=== PATIENT | female | born 1980 | race Caucasian/White ===

== ENCOUNTER 2024-03-08 13:19 | Emergency (ER) | payer MEDICAID ==
[~2024-03-08] VITALS: Ht 165.1 cm; Wt 59.0 kg
[~2024-03-08 13:19] MED LIST: BUTA50TA6; BUTACAP OR; CLOZ100T; DIPH50TA15 OR; DOCU60SY2; FLUO20CA19; FLUO20CA19 OR; HYDR-2601; HYDR500T13 OR; IBU600T; IPRA0.035; IPRIH; LITH300C3 OR; METF-370; METF-370 OR; NITR-39 OR; NITR-52; OLAN10TA; OLAN10TA OR; TOPI100T29 OR; TOPI100T29 PO; TRAZ-227; TRAZ-227 OR; [UNRECOGNIZED DRUG - CODE] XX; abilify; benadryl; doc-q-lace PO; hydrocodone
[2024-03-08 13:36] VITALS: BP 119/63; PULSE 72; RESP 18; O2SAT 97
[2024-03-08 14:08] LABS: Basophils # (auto) 0 10 ^3/uL (0-0.2); Basophils % (auto) 0.1 % (0.0-2.0); Eosinophils # (auto) 0 10 ^3/uL (0-0.8); Hematocrit 46.6 % (36.0-46.0); Hemoglobin 15.8 g/dL (12.2-16.2); Lymphocytes # (auto) 2.9 10 ^3/uL (0.4-5.4); Mean Corpuscular Hemoglobin 29.5 pg (28.0-32.0); Mean Corpuscular Volume 86.7 fL (80.0-100.0); Monocytes # (auto) 0.6 10 ^3/uL (0-1.3); Monocytes % (auto) 6.9 % (0.0-12.0); Neutrophils # (auto) 5.8 10 ^3/uL (1.6-8.6); Nucleated Red Blood Cells % 0.2 %; Red Blood Cells 5.38 10^6/uL (4.0-5.20); Red Cell Distribution Width 13.4 % (11.8-14.3); White Blood Cell 9.4 10^3/uL (4.4-10.8)
[2024-03-08 14:25] LABS: Alanine Aminotransferase 13 U/L (7-40); Albumin 4.5 g/dL (3.2-4.8); Alkaline Phosphatase 51 U/L (46-116); Anion Gap 3 (5-15); Aspartate Aminotransferase 10 U/L (13-40); BUN/Creatinine Ratio 17.7 (10.0-20.0); Bilirubin, Total 0.5 mg/dL (0.2-1.0); Blood Urea Nitrogen 11 mg/dL (9-23); Calcium 9.8 mg/dL (8.5-10.1); Carbon Dioxide 25 mmol/L (20-30); Chloride 112 mmol/L (98-107); Glucose 101 mg/dL (74-106); Potassium 3.9 mmol/L (3.5-5.1); Sodium 140 mmol/L (136-145); Total Protein 6.5 g/dL (5.7-8.2)
== END 2024-03-08 16:13 | disposition left against medical advice (07) ==
LOC: ER 13:19 → EDBD 13:19 → ER 16:13
DX: R55 Syncope and collapse (principal); R07.9 Chest pain, unspecified; R06.02 Shortness of breath; Z53.21 Procedure and treatment not carried out due to patient leaving prior to being seen by health care provider
CPT/HCPCS: 36415; 80053; 84484; 85025; 93005